=== PATIENT | female | born 1955 | race Caucasian/White ===

== ENCOUNTER → 2017-06-25 | Outpatient (CLI) | payer MEDICARE, OTHER | LOC: M RAD 15:17 | DX: R55 Syncope and collapse (principal) | CPT/HCPCS: 70450 ==

== ENCOUNTER → 2017-11-25 | Outpatient (REF) | payer MEDICARE, OTHER ==
[2017-11-25 20:20] LABS: FERRITIN 445 NG/ML (8-252)
== END ==
LOC: M LAB REF 17:59
DX: G25.81 Restless legs syndrome (principal)
CPT/HCPCS: 82728

== ENCOUNTER → 2021-10-18 | Outpatient (CLI) | payer MEDICARE ==
[~2021-10-18] MED LIST: ALLE25CA OR; AUGMENTIN PO; FURO40TA2 OR; LISI10TA4 OR; MIRALEX OR; NAPROXYN PO; OMEPPOW18 PO; PERC5TAB8 OR; ROPINIROLE PO
== END ==
LOC: M WHC 10:27
PROVIDERS: ATTEND Nurse Practitioner Adult Health
DX: Z12.31 Encounter for screening mammogram for malignant neoplasm of breast (principal)

== ENCOUNTER → 2022-08-12 | Outpatient (CLI) | payer MEDICARE | LOC: M RAD 08:27 | PROVIDERS: ATTEND Internal Medicine | DX: I12.9 Hypertensive chronic kidney disease with stage 1 through stage 4 chronic kidney disease, or unspecified chronic kidney disease (principal); N18.9 Chronic kidney disease, unspecified ==

== ENCOUNTER 2023-12-01 11:46 | Inpatient (IN) | payer MEDICARE ==
[~2023-12-01] VITALS: Ht 170.2 cm; Wt 156.8 kg
[~2023-12-01 11:46] MED LIST changes: -ACET-653 PO; -CALC-205 PO; -FAMO1TAB11 PO; -HYDR12.55 PO; -IRBE150T27 PO; -MAGN250T7 PO; -ROPI2TAB46 PO; -SEMA0.257 SQ
[2023-12-01] MEDS ORDERED: ROPI2TAB46 PO (12:04)
[2023-12-01] MEDS ORDERED: ACET-653 PO (12:04)
[2023-12-01 12:38] LABS: BASO % 0.5 % (0.0-1.0); EOS % 0.4 % (0.0-3.0); HEMATOCRIT 40.6 % (36.0-47.0); HEMOGLOBIN 13.9 g/dl (12.0-15.5); LYMPH # 1.1 10^3/uL (1.5-5.0); LYMPH % 14.8 % (24.0-44.0); MEAN CORPUSCULAR HEMOGLOBIN 31.8 pg (27.0-33.0); MEAN CORPUSCULAR HGB CONC 34.2 g/dl (32.0-36.5); MEAN CORPUSCULAR VOLUME 92.9 fl (80.0-96.0); MONO # 0.6 10^3/uL (0.0-0.8); MONO % 7.5 % (2.0-8.0); NEUTROPHILS # 5.8 10^3/uL (1.5-8.5); NEUTROPHILS % 76.4 % (36.0-66.0); PLATELET COUNT, AUTOMATED 253 10^3/uL (150-450); RED BLOOD COUNT 4.37 10^6/uL (4.00-5.40); WHITE BLOOD COUNT 7.6 10^3/uL (4.0-10.0)
[2023-12-01] MEDS: NS 1,000 ML IV ONE (12:46)
[2023-12-01] MEDS: PIPERACILLIN/TAZOBACTAM SOD 4.5 GM in D5W MINI-BAG PLUS 50 ML IV ONE (12:55)
[2023-12-01 13:04] LABS: CALCIUM LEVEL 9.9 MG/DL (8.3-10.6); CREATININE FOR GFR 1.63 MG/DL (0.55-1.30); GLOMERULAR FILTRATION RATE 33.4 (>45); POTASSIUM SERUM 4.1 MMOL/L (3.5-5.1)
[2023-12-01 13:52] LABS: INR 1.22; PARTIAL THROMBOPLASTIN TIME 31.5 SECONDS (24.8-34.2); PROTHROMBIN TIME 15.1 SECONDS (12.5-14.5)
[2023-12-01] MEDS ORDERED: ISOVUE-370 76% 100ML VIAL As Ordered ONE (13:54)
[2023-12-01 13:55] LABS: ALBUMIN 3.6 G/DL (3.2-5.2); ALKALINE PHOSPHATASE 114 U/L (46-116); ALT/SGPT 20 U/L (7.0-40); AMYLASE 141 U/L (30-118); AST/SGOT 18 U/L (<34); BILIRUBIN,DIRECT 0.1 MG/DL (<0.4); BILIRUBIN,TOTAL 0.4 MG/DL (0.3-1.2); CK-MB VALUE MASS < 1.0 NG/ML (<3.6); TOTAL PROTEIN 7.6 G/DL (5.7-8.2)
[2023-12-01 14:08] LABS: PROCALCITONIN 0.04 ng/ml
[2023-12-01 14:11] LABS: CPK CREATINE PHOSPHOKINASE 48 U/L (34-145); MB/CK RELATIVE INDEX 2.08 (< OR =4)
[2023-12-01] MEDS: DIGOXIN INJ 0.5 MG/2 ML AMP IV ONE ×2 (14:40→21:20)
[2023-12-01] MEDS: METOPROLOL TART 25 MG TABLET PO ONE (14:40)
[2023-12-01] MEDS: LIDOCAINE 2% W/EPINEPHRINE 20ML VIAL **PRES FREE INJ ONE (15:12)
[2023-12-01 15:15] LABS: APPEARANCE, URINE HAZY (CLEAR); BACTERIA, URINE AUTO NEGATIVE (NEGATIVE); BILIRUBIN, URINE AUTO NEGATIVE (NEGATIVE); BLOOD, URINE BLOOD NEGATIVE (NEGATIVE); COLOR, URINE YELLOW (YELLOW); GLUCOSE, URINE (UA) AUTO NEGATIVE (NEGATIVE); KETONE, URINE AUTO NEGATIVE (NEGATIVE); LEUKOCYTE ESTERASE, URINE AUTO NEGATIVE (NEGATIVE); NITRITE, URINE AUTO NEGATIVE (NEGATIVE); PROTEIN, URINE AUTO NEGATIVE (NEGATIVE); RBC, URINE AUTO 1 /HPF (0-3); SPECIFIC GRAVITY URINE AUTO 1.029 (1.002-1.035); SQUAMOUS EPITHELIAL CELL UR AU 7 /HPF (0-6); UROBILINOGEN, URINE AUTO 0.2 mg/dL (0.0-2.0); WBC, URINE AUTO 1 /HPF (0-3)
[2023-12-01] MEDS ORDERED: HYDR12.55 PO (16:38)
[2023-12-01] MEDS ORDERED: IRBE150T27 PO (16:38)
[2023-12-01] MEDS ORDERED: CALC-205 PO (16:38)
[2023-12-01] MEDS ORDERED: FAMO1TAB11 PO (16:38)
[2023-12-01] MEDS ORDERED: MAGN250T7 PO (16:38)
[2023-12-01] MEDS ORDERED: SEMA0.257 SQ (16:38)
[2023-12-01] MEDS ORDERED: HOME MED LIST COMPLETE! XX SCH (16:40)
[2023-12-01 17:05] LABS: VENOUS BASE EXCESS -0.5 (-2.0-2.0); VENOUS HCO3 23.8 MMOL/L (23.0-27.0); VENOUS PARTIAL PRESSURE CO2 38.2 mmHg (38.0-50.0); VENOUS PARTIAL PRESSURE O2 57.3 mmHg (30.0-50.0); VENOUS PH 7.413 UNITS (7.330-7.430); VENOUS STANDARD HCO3 23.9 MMOL/L
[2023-12-01] MEDS ORDERED: oxyCODONE 5MG TAB PO PRN (17:30)
[2023-12-01 17:33] LABS: CK-MB VALUE MASS 1.1 NG/ML (<3.6)
[2023-12-01 17:37] LABS: MB/CK RELATIVE INDEX 1.17 (< OR =4)
[2023-12-01] MEDS ORDERED: PILL CUTTER 1 EACH XX PRN (17:45)
[2023-12-01] MEDS: NS 1,000 ML IV SCH (18:00)
[2023-12-01] MEDS: METOPROLOL TART 25 MG TABLET PO SCH (18:00)
[2023-12-01] MEDS: FAMOTIDINE 20 MG TAB PO SCH (21:19)
[2023-12-01] MEDS: APIXABAN 5 MG TAB (ELIQUIS) PO SCH (21:19)
[2023-12-01] MEDS: rOPINIRole 2MG TAB PO SCH (21:19)
[2023-12-01] MEDS: DOCUSATE SODIUM 100MG CAPSULE PO SCH (21:19)
[2023-12-01] MEDS: CEFTAROLINE FOSAMIL 600 MG in D5W MINI-BAG PLUS 50 ML IV SCH (21:20)
[2023-12-02] MEDS: METOPROLOL 5 MG/5 ML VIAL IV ONE (02:53)
[2023-12-02] MEDS: ACETAMINOPHEN TAB 650MG DOSE (2X325MG) PO PRN (03:00)
[2023-12-02 08:26] LABS: BASO % 0.6 % (0.0-1.0); EOS # 0.1 10^3/uL (0.0-0.5); EOS % 1.1 % (0.0-3.0); HEMATOCRIT 37.3 % (36.0-47.0); HEMOGLOBIN 12.5 g/dl (12.0-15.5); LYMPH # 0.9 10^3/uL (1.5-5.0); LYMPH % 12.1 % (24.0-44.0); MEAN CORPUSCULAR HEMOGLOBIN 31.3 pg (27.0-33.0); MEAN CORPUSCULAR HGB CONC 33.5 g/dl (32.0-36.5); MEAN CORPUSCULAR VOLUME 93.3 fl (80.0-96.0); MONO # 0.6 10^3/uL (0.0-0.8); MONO % 7.8 % (2.0-8.0); NEUTROPHILS # 5.5 10^3/uL (1.5-8.5); PLATELET COUNT, AUTOMATED 200 10^3/uL (150-450)
[2023-12-02] MEDS: rOPINIRole 1MG TAB PO SCH (08:30)
[2023-12-02 08:58] LABS: CREATININE FOR GFR 1.36 MG/DL (0.55-1.30); GLOMERULAR FILTRATION RATE 41.2 (>45); POTASSIUM SERUM 4.3 MMOL/L (3.5-5.1)
[2023-12-02] MEDS ORDERED: PREVNAR-20 VACCINE 0.5ML SYRINGE IM.IMMUN ONE (09:00)
[2023-12-02] MEDS ORDERED: FLUBLOK(EGGFREE) TRIVAL(24-25) VACCINE PF 0.5ML SYRINGE 18YRS & OLDER IM.IMMUN ONE (09:00)
[2023-12-02] MEDS: DIGOXIN 0.25 MG TAB PO SCH (09:46)
[2023-12-02] MEDS: MAGNESIUM OXIDE 400MG TAB (MAG-OX) PO SCH (09:46)
[2023-12-02] MEDS: METOPROLOL TART 25 MG TABLET PO SCH (18:20)
[2023-12-02 21:13] VITALS: BP 133/101; TEMP 99.2; O2SAT 97
[2023-12-02 23:53] VITALS: BP 144/84; TEMP 97.6; O2SAT 95
[2023-12-03 04:25] VITALS: BP 160/76; TEMP 97.9; O2SAT 95
[2023-12-03 06:25] LABS: BASO % 0.6 % (0.0-1.0); EOS # 0.1 10^3/uL (0.0-0.5); HEMATOCRIT 36.4 % (36.0-47.0); HEMOGLOBIN 12.4 g/dl (12.0-15.5); LYMPH # 0.9 10^3/uL (1.5-5.0); LYMPH % 13.5 % (24.0-44.0); MEAN CORPUSCULAR HEMOGLOBIN 31.6 pg (27.0-33.0); MEAN CORPUSCULAR HGB CONC 34.1 g/dl (32.0-36.5); MEAN CORPUSCULAR VOLUME 92.6 fl (80.0-96.0); MONO # 0.5 10^3/uL (0.0-0.8); MONO % 6.7 % (2.0-8.0); NEUTROPHILS # 5.4 10^3/uL (1.5-8.5); NEUTROPHILS % 77.9 % (36.0-66.0); PLATELET COUNT, AUTOMATED 212 10^3/uL (150-450); RED BLOOD COUNT 3.93 10^6/uL (4.00-5.40); WHITE BLOOD COUNT 6.9 10^3/uL (4.0-10.0)
[2023-12-03 06:46] VITALS: BP 160/76
[2023-12-03 06:51] LABS: CALCIUM LEVEL 8.9 MG/DL (8.3-10.6); CREATININE FOR GFR 1.36 MG/DL (0.55-1.30); GLOMERULAR FILTRATION RATE 41.2 (>45); POTASSIUM SERUM 4.2 MMOL/L (3.5-5.1)
[2023-12-03 08:33] VITALS: BP 139/59; TEMP 98.3; O2SAT 97
[2023-12-03] MEDS: FLUBLOK(EGGFREE) TRIVAL(24-25) VACCINE PF 0.5ML SYRINGE 18YRS & OLDER IM.IMMUN ONE (09:39)
[2023-12-03] MEDS ORDERED: DIGO0.253 PO (11:04)
[2023-12-03] MEDS ORDERED: DOXY100T PO (11:04)
[2023-12-03] MEDS ORDERED: METO100T5 PO (11:04)
[2023-12-03] MEDS ORDERED: ELIQ5TAB PO (11:04)
[2023-12-03] MEDS: PREVNAR-20 VACCINE 0.5ML SYRINGE IM.IMMUN ONE (12:29)
[2023-12-03 12:36] VITALS: BP 118/62
[2023-12-03] MEDS ORDERED: XARE15TA PO (13:28)
[2023-12-03 13:36] LABS: SSA SJOGRENS A <1.0 NEG AI (<1.0 NEG); SSB SJOGRENS B <1.0 NEG AI (<1.0 NEG)
[2023-12-03 14:57] LABS: HOMOCYST(E)INE SERUM 23.1 umol/L (<10.4)
[2023-12-04 08:54] LABS: DRVV SCREEN 40.1 SECONDS
[2023-12-05 02:36] LABS: CARDIOLIPIN IGA ANTIBODY < 2.0 APL-U/mL (<20.0); CARDIOLIPIN IGG ANTIBODY < 2.0 GPL-U/mL (<20.0)
[2023-12-06 00:52] LABS: PROTEIN C FUNCTIONAL ACTIVITY 130 % normal (70-180); PROTEIN S FUNCTIONAL ACTIVITY 109 % normal (60-140)
== END 2023-12-03 15:51 | disposition home or self-care (01) | DRG 176 ==
LOC: M ED 11:46 → M ED INP 16:22 → M PCU 12-02 21:13
PROVIDERS: ADMIT Internal Medicine Nephrology; ATTEND Internal Medicine Nephrology
PROC: B246ZZZ Ultrasonography of Right and Left Heart (ICD-10-PCS; principal; 2023-12-01)
DX: I26.99 Other pulmonary embolism without acute cor pulmonale (principal); I48.92 Unspecified atrial flutter; L02.212 Cutaneous abscess of back [any part, except buttock and flank]; N17.9 Acute kidney failure, unspecified; E66.01 Morbid (severe) obesity due to excess calories; K21.9 Gastro-esophageal reflux disease without esophagitis; I12.9 Hypertensive chronic kidney disease with stage 1 through stage 4 chronic kidney disease, or unspecified chronic kidney disease; G25.81 Restless legs syndrome; M16.0 Bilateral primary osteoarthritis of hip; M17.0 Bilateral primary osteoarthritis of knee; N18.30 Chronic kidney disease, stage 3 unspecified; I83.90 Asymptomatic varicose veins of unspecified lower extremity; I87.2 Venous insufficiency (chronic) (peripheral); K44.9 Diaphragmatic hernia without obstruction or gangrene; K57.50 Diverticulosis of both small and large intestine without perforation or abscess without bleeding; Z79.899 Other long term (current) drug therapy; Z91.040 Latex allergy status; Z91.048 Other nonmedicinal substance allergy status

== ENCOUNTER → 2023-12-01 | Outpatient (REF) | payer MEDICARE ==
[~2023-12-01] MED LIST changes: +ACET-653 PO; +CALC-205 PO; +FAMO1TAB11 PO; +HYDR12.55 PO; +IRBE150T27 PO; +MAGN250T7 PO; +ROPI2TAB46 PO; +SEMA0.257 SQ
== END ==
LOC: M LAB REF 11:59
PROVIDERS: ATTEND Physician Assistant Medical
DX: L02.91 Cutaneous abscess, unspecified (principal)

== ENCOUNTER → 2023-12-28 | Outpatient (REF) | payer MEDICARE ==
[~2023-12-28] MED LIST changes: +ACET-653 PO; +CALC-205 PO; +DIGO0.253 PO; +DOXY100T PO; +ELIQ5TAB PO; +FAMO1TAB11 PO; +HYDR12.55 PO; +IRBE150T27 PO; +MAGN250T7 PO; +METO100T5 PO; +ROPI2TAB46 PO; +SEMA0.257 SQ; +XARE15TA PO
[2023-12-28 19:49] LABS: CA19-9 TUMOR MARKER,CARBOHYDRA 7.3 U/ML (<35.0)
== END ==
LOC: M LAB REF 16:23
PROVIDERS: ATTEND Physician Assistant Medical
DX: L02.212 Cutaneous abscess of back [any part, except buttock and flank] (principal)

== ENCOUNTER → 2024-01-21 | Outpatient (CLI) | payer MEDICARE | LOC: M RAD 12:53 | PROVIDERS: ATTEND Physician Assistant Medical | DX: D48.5 Neoplasm of uncertain behavior of skin (principal); N85.2 Hypertrophy of uterus; N83.292 Other ovarian cyst, left side ==

== ENCOUNTER 2024-01-24 13:57 | Inpatient (IN) | payer MEDICARE ==
[~2024-01-24] VITALS: Ht 172.7 cm; Wt 158.4 kg
[2024-01-24 14:50] LABS: BASO % 0.3 % (0.0-1.0); HEMATOCRIT 23.2 % (36.0-47.0); LYMPH # 1.3 10^3/uL (1.5-5.0); LYMPH % 9.6 % (24.0-44.0); MEAN CORPUSCULAR HEMOGLOBIN 32.7 pg (27.0-33.0); MEAN CORPUSCULAR HGB CONC 34.5 g/dl (32.0-36.5); MEAN CORPUSCULAR VOLUME 94.7 fl (80.0-96.0); MONO # 0.7 10^3/uL (0.0-0.8); MONO % 5.5 % (2.0-8.0); NEUTROPHILS # 11.2 10^3/uL (1.5-8.5); NEUTROPHILS % 83.6 % (36.0-66.0); PLATELET COUNT, AUTOMATED 292 10^3/uL (150-450); RED BLOOD COUNT 2.45 10^6/uL (4.00-5.40); WHITE BLOOD COUNT 13.4 10^3/uL (4.0-10.0)
[2024-01-24 15:03] LABS: INR 1.21; PARTIAL THROMBOPLASTIN TIME 27.8 SECONDS (24.8-34.2); PROTHROMBIN TIME 15.6 SECONDS (12.5-14.5)
[2024-01-24 15:18] LABS: CALCIUM LEVEL 8.3 MG/DL (8.3-10.6); CREATININE FOR GFR 2.54 MG/DL (0.55-1.30); POTASSIUM SERUM 4.5 MMOL/L (3.5-5.1)
[2024-01-24] MEDS ORDERED: ACETAMINOPH W/CODEINE #3 TAB UD PO PRN (16:15)
[2024-01-24] MEDS ORDERED: NALOXONE INJ 0.4MG/1ML VIAL IV PRN (16:15)
[2024-01-24] MEDS ORDERED: DIGOXIN 0.125 MG TAB PO ONE (16:15)
[2024-01-24] MEDS: NS 1,000 ML IV ONE ×2 (16:30→23:28)
[2024-01-24] MEDS ORDERED: METO100T5 PO (17:14)
[2024-01-24] MEDS ORDERED: DIGO0.253 PO (17:14)
[2024-01-24] MEDS: medroxyPROGESTERone 5MG TABLET PO ONE ×2 (17:15→23:29)
[2024-01-24 17:17] VITALS: BP 102/59; TEMP 97.3; O2SAT 100
[2024-01-24] MEDS ORDERED: HOME MED LIST COMPLETE! XX SCH (17:20)
[2024-01-24 17:35] VITALS: BP 102/54; TEMP 97.6; O2SAT 99
[2024-01-24] MEDS ORDERED: FAMOTIDINE 20 MG TAB PO PRN (17:40)
[2024-01-24 17:55] LABS: APPEARANCE, URINE HAZY (CLEAR); BACTERIA, URINE AUTO NEGATIVE (NEGATIVE); BILIRUBIN, URINE AUTO 1+ (NEGATIVE); BLOOD, URINE BLOOD NEGATIVE (NEGATIVE); COLOR, URINE AMBER (YELLOW); GLUCOSE, URINE (UA) AUTO NEGATIVE (NEGATIVE); KETONE, URINE AUTO NEGATIVE (NEGATIVE); LEUKOCYTE ESTERASE, URINE AUTO NEGATIVE (NEGATIVE); MUCUS, URINE SMALL (NEGATIVE); NITRITE, URINE AUTO NEGATIVE (NEGATIVE); PROTEIN, URINE AUTO NEGATIVE (NEGATIVE); RBC, URINE AUTO 1 /HPF (0-3); SPECIFIC GRAVITY URINE AUTO 1.025 (1.002-1.035); SQUAMOUS EPITHELIAL CELL UR AU 4 /HPF (0-6); WBC, URINE AUTO 1 /HPF (0-3)
[2024-01-24] MEDS: METOPROLOL TARTRATE 100MG TAB PO SCH (18:00)
[2024-01-24 18:20] VITALS: BP 121/56; TEMP 98; O2SAT 100
[2024-01-24 20:14] VITALS: BP 100/47; TEMP 98.1; O2SAT 97
[2024-01-24] MEDS ORDERED: medroxyPROGESTERone 5MG TABLET PO SCH (21:00)
[2024-01-24] MEDS ORDERED: PROHANCE 279.3MG/ML 5ML VIAL As Ordered ONE (21:34)
[2024-01-24] MEDS ORDERED: PROHANCE 279.3MG/ML 15ML VIAL As Ordered ONE (21:34)
[2024-01-24] MEDS: PANTOPRAZOLE 40MG TAB (PROTONIX) PO ONE (23:27)
[2024-01-24] MEDS: KETOROLAC 30 MG/ML 1ML VIAL IV ONE (23:28)
[2024-01-24] MEDS: ACETAMINOPH W/CODEINE #3 TAB UD PO ONE (23:28)
[2024-01-24] MEDS: DIGOXIN 0.125 MG TAB PO ONE (23:29)
[2024-01-24 23:30] VITALS: BP 124/58; TEMP 98.1; O2SAT 99
[2024-01-24 23:50] LABS: HEMATOCRIT 21.9 % (36.0-47.0); HEMOGLOBIN 7.6 g/dl (12.0-15.5)
[2024-01-25] VITALS (16 sets, daily range): BP systolic 90–122; BP diastolic 44–82; TEMP 97–99.1; O2SAT 95–100
[2024-01-25] MEDS: LR 1,000 ML IV SCH ×2 (00:54→17:53)
[2024-01-25] MEDS: MIDODRINE 5 MG TAB PO ONE (01:17)
[2024-01-25 05:02] LABS: HEMOGLOBIN 6.5 g/dl (12.0-15.5)
[2024-01-25] MEDS: MIDODRINE 5 MG TAB PO SCH (08:47)
[2024-01-25] MEDS: medroxyPROGESTERone 5MG TABLET PO SCH (08:47)
[2024-01-25] MEDS: PANTOPRAZOLE 40MG TAB (PROTONIX) PO SCH (08:47)
[2024-01-25] MEDS: DIGOXIN 0.125 MG TAB PO SCH (08:47)
[2024-01-25] MEDS: NS 1,000 ML IV ONE (08:48)
[2024-01-25 09:57] LABS: BASO % 0.4 % (0.0-1.0); EOS % 0.3 % (0.0-3.0); HEMATOCRIT 22.3 % (36.0-47.0); HEMOGLOBIN 7.6 g/dl (12.0-15.5); LYMPH # 1.3 10^3/uL (1.5-5.0); LYMPH % 11.5 % (24.0-44.0); MEAN CORPUSCULAR HEMOGLOBIN 32.3 pg (27.0-33.0); MEAN CORPUSCULAR HGB CONC 34.1 g/dl (32.0-36.5); MEAN CORPUSCULAR VOLUME 94.9 fl (80.0-96.0); MONO # 0.7 10^3/uL (0.0-0.8); MONO % 5.8 % (2.0-8.0); NEUTROPHILS # 9.1 10^3/uL (1.5-8.5); NEUTROPHILS % 80.8 % (36.0-66.0); PLATELET COUNT, AUTOMATED 232 10^3/uL (150-450); RED BLOOD COUNT 2.35 10^6/uL (4.00-5.40); WHITE BLOOD COUNT 11.3 10^3/uL (4.0-10.0)
[2024-01-25 10:30] LABS: ALBUMIN 2.5 G/DL (3.2-5.2); BILIRUBIN,TOTAL 0.8 MG/DL (0.3-1.2); CALCIUM LEVEL 7.2 MG/DL (8.3-10.6); CREATININE FOR GFR 3.66 MG/DL (0.55-1.30); GLOMERULAR FILTRATION RATE 13.1 (>45); TOTAL PROTEIN 4.4 G/DL (5.7-8.2)
[2024-01-25] MEDS: rOPINIRole 2MG TAB PO SCH (10:43)
[2024-01-25] MEDS: SENOKOT S TAB PO ONE (11:37)
[2024-01-25 14:46] LABS: HEMATOCRIT 27.6 % (36.0-47.0); HEMOGLOBIN 9.5 g/dl (12.0-15.5)
[2024-01-25] MEDS: BISACODYL 10MG SUPP PR ONE (16:46)
[2024-01-25] MEDS ORDERED: PILL CUTTER 1 EACH XX ONE (17:50)
[2024-01-25] MEDS: FLEET ENEMA PR PRN (21:34)
[2024-01-26] VITALS (8 sets, daily range): BP systolic 104–135; BP diastolic 51–68; TEMP 97–97.7; O2SAT 95–99
[2024-01-26 07:59] LABS: BASO % 0.3 % (0.0-1.0); EOS % 0.4 % (0.0-3.0); HEMATOCRIT 24.8 % (36.0-47.0); HEMOGLOBIN 8.7 g/dl (12.0-15.5); LYMPH # 0.9 10^3/uL (1.5-5.0); LYMPH % 12.4 % (24.0-44.0); MEAN CORPUSCULAR HEMOGLOBIN 32.2 pg (27.0-33.0); MEAN CORPUSCULAR HGB CONC 35.1 g/dl (32.0-36.5); MEAN CORPUSCULAR VOLUME 91.9 fl (80.0-96.0); MONO # 0.5 10^3/uL (0.0-0.8); MONO % 6.8 % (2.0-8.0); NEUTROPHILS # 5.6 10^3/uL (1.5-8.5); NEUTROPHILS % 78.7 % (36.0-66.0); PLATELET COUNT, AUTOMATED 202 10^3/uL (150-450); WHITE BLOOD COUNT 7.1 10^3/uL (4.0-10.0)
[2024-01-26 08:31] LABS: CALCIUM LEVEL 7.4 MG/DL (8.3-10.6); CREATININE FOR GFR 2.42 MG/DL (0.55-1.30); GLOMERULAR FILTRATION RATE 21.2 (>45); POTASSIUM SERUM 3.9 MMOL/L (3.5-5.1)
[2024-01-27 03:39] VITALS: BP 119/56; TEMP 97.7; O2SAT 97
[2024-01-27 05:55] LABS: BASO % 0.3 % (0.0-1.0); EOS # 0.1 10^3/uL (0.0-0.5); EOS % 1.3 % (0.0-3.0); HEMATOCRIT 24.6 % (36.0-47.0); HEMOGLOBIN 8.2 g/dl (12.0-15.5); LYMPH # 1.5 10^3/uL (1.5-5.0); LYMPH % 23.3 % (24.0-44.0); MEAN CORPUSCULAR HEMOGLOBIN 31.4 pg (27.0-33.0); MEAN CORPUSCULAR HGB CONC 33.3 g/dl (32.0-36.5); MEAN CORPUSCULAR VOLUME 94.3 fl (80.0-96.0); MONO # 0.5 10^3/uL (0.0-0.8); MONO % 8.5 % (2.0-8.0); NEUTROPHILS # 4.2 10^3/uL (1.5-8.5); NEUTROPHILS % 65.8 % (36.0-66.0); PLATELET COUNT, AUTOMATED 193 10^3/uL (150-450); RED BLOOD COUNT 2.61 10^6/uL (4.00-5.40); WHITE BLOOD COUNT 6.4 10^3/uL (4.0-10.0)
[2024-01-27 06:28] LABS: CALCIUM LEVEL 7.9 MG/DL (8.3-10.6); CREATININE FOR GFR 1.57 MG/DL (0.55-1.30); GLOMERULAR FILTRATION RATE 34.9 (>45); POTASSIUM SERUM 3.8 MMOL/L (3.5-5.1)
[2024-01-27 07:51] VITALS: BP 124/58; TEMP 98; O2SAT 96
[2024-01-27 12:00] VITALS: BP 113/57; TEMP 98.2; O2SAT 95
[2024-01-27 13:06] VITALS: BP 113/57
[2024-01-27] MEDS ORDERED: MEDR5TAB3 PO (15:26)
[2024-01-27] MEDS ORDERED: DIGO0.253 PO (15:26)
[2024-01-27] MEDS ORDERED: SENO8.6T10 PO (15:26)
== END 2024-01-27 17:02 | disposition home or self-care (01) | DRG 988 ==
LOC: M ED 13:57 → M ED INP 15:42 → M PCU 19:02
PROVIDERS: ADMIT General Practice; ATTEND General Practice
PROC: 30233N1 Transfusion of Nonautologous Red Blood Cells into Peripheral Vein, Percutaneous Approach (ICD-10-PCS; 2024-01-24)
PROC: 0UB97ZX Excision of Uterus, Via Natural or Artificial Opening, Diagnostic (ICD-10-PCS; principal; 2024-01-25)
DX: D62 Acute posthemorrhagic anemia (principal); N17.9 Acute kidney failure, unspecified; I48.92 Unspecified atrial flutter; L97.929 Non-pressure chronic ulcer of unspecified part of left lower leg with unspecified severity; K57.40 Diverticulitis of both small and large intestine with perforation and abscess without bleeding; D68.32 Hemorrhagic disorder due to extrinsic circulating anticoagulants; Z68.43 Body mass index [BMI] 50.0-59.9, adult; N95.0 Postmenopausal bleeding; G89.29 Other chronic pain; M54.9 Dorsalgia, unspecified; E66.01 Morbid (severe) obesity due to excess calories; M16.0 Bilateral primary osteoarthritis of hip; M17.0 Bilateral primary osteoarthritis of knee; I12.9 Hypertensive chronic kidney disease with stage 1 through stage 4 chronic kidney disease, or unspecified chronic kidney disease; N18.30 Chronic kidney disease, stage 3 unspecified; G25.81 Restless legs syndrome; I83.90 Asymptomatic varicose veins of unspecified lower extremity; I87.2 Venous insufficiency (chronic) (peripheral); K44.9 Diaphragmatic hernia without obstruction or gangrene; E86.0 Dehydration; I95.9 Hypotension, unspecified; N83.202 Unspecified ovarian cyst, left side; N84.0 Polyp of corpus uteri; Z86.711 Personal history of pulmonary embolism; Z91.040 Latex allergy status; Z91.048 Other nonmedicinal substance allergy status; Z79.899 Other long term (current) drug therapy

== ENCOUNTER → 2024-06-30 | Outpatient (CLI) | payer MEDICARE ==
[~2024-06-30] MED LIST changes: +MEDR5TAB3 PO; +SENO8.6T10 PO
== END ==
LOC: M WHC 10:17
PROVIDERS: ATTEND Obstetrics & Gynecology
DX: N95.0 Postmenopausal bleeding (principal); D25.9 Leiomyoma of uterus, unspecified; N83.202 Unspecified ovarian cyst, left side

== ENCOUNTER → 2024-09-28 | Outpatient (CLI) | payer MEDICARE | LOC: M WHC 10:21 | PROVIDERS: ATTEND Obstetrics & Gynecology | DX: N95.0 Postmenopausal bleeding (principal); R93.89 Abnormal findings on diagnostic imaging of other specified body structures; N83.202 Unspecified ovarian cyst, left side ==

== ENCOUNTER 2024-10-07 10:38 | Outpatient (RCR) | payer MEDICARE | END 2024-11-06 | LOC: M PT 10:38 | PROVIDERS: ATTEND Physician Assistant Medical | DX: R27.8 Other lack of coordination (principal); Z74.1 Need for assistance with personal care ==

== ENCOUNTER → 2024-10-20 | Outpatient (CLI) | payer MEDICARE | LOC: M RAD 12:44 | PROVIDERS: ATTEND Physician Assistant | DX: M79.662 Pain in left lower leg (principal); R22.42 Localized swelling, mass and lump, left lower limb; R09.89 Other specified symptoms and signs involving the circulatory and respiratory systems ==

== ENCOUNTER → 2025-01-03 | Outpatient (CLI) | payer MEDICARE | LOC: M RAD 10:11 | PROVIDERS: ATTEND Surgery | DX: I87.312 Chronic venous hypertension (idiopathic) with ulcer of left lower extremity (principal); L97.922 Non-pressure chronic ulcer of unspecified part of left lower leg with fat layer exposed ==

== ENCOUNTER → 2025-02-08 | Outpatient (POV) | payer MEDICARE | LOC: M IRPOV 13:00 | PROVIDERS: ATTEND Radiology Diagnostic Radiology | DX: I83.023 Varicose veins of left lower extremity with ulcer of ankle (principal); L97.322 Non-pressure chronic ulcer of left ankle with fat layer exposed; M17.0 Bilateral primary osteoarthritis of knee; Z82.49 Family history of ischemic heart disease and other diseases of the circulatory system; Z79.51 Long term (current) use of inhaled steroids; Z79.85 Long-term (current) use of injectable non-insulin antidiabetic drugs; Z79.891 Long term (current) use of opiate analgesic; Z79.899 Other long term (current) drug therapy ==